=== PATIENT | female | born 1975 | race American Indian/Alaskan Native ===

== ENCOUNTER 2018-07-25 15:01 | Outpatient (CLI) | payer MEDICAID ==
--- NOTE | 2018-07-26 11:47 | Ultrasound Report ---
BILATERAL DIGITAL DIAGNOSTIC MAMMOGRAM with CAD and LEFT BREAST ULTRASOUND: 07/25/18 15:00:00 CLINICAL: Left breast pain COMPARISON:None. FINDINGS: The breasts are heterogeneously dense, which may obscure small masses.No mass, suspicious architectural distortion or suspicious calcifications. Ultrasound of the left breast (including all four quadrants and the retroareolar area) demonstrated normal fibroglandular and fatty structures. No mass, cyst or shadowing. IMPRESSION: No mammographic evidence of malignancy.Negative left breast ultrasound. No explanation for left breast pain. BI-RADS CATEGORY: 1 -- Negative RECOMMENDATION: Clinical followup and routine mammographic screening in one year. COMMENT: Patient follow-up letters are generated by our [employer] application.
== END 2018-07-25 15:02 | disposition home or self-care (01) ==
LOC: SPVWC 15:01
PROVIDERS: ATTEND Advanced Practice Midwife
DX: N64.4 Mastodynia (principal)
CPT/HCPCS: 77066